=== PATIENT | female | born 1990 | race Caucasian/White ===

== ENCOUNTER → 2016-10-05 | Outpatient (CLI) | payer OTHER | END | disposition home or self-care (01) | LOC: CFH 08:53 | PROVIDERS: ATTEND Surgery | DX: Z01.818 Encounter for other preprocedural examination (principal); E66.01 Morbid (severe) obesity due to excess calories | CPT/HCPCS: 74241 ==

== ENCOUNTER 2016-11-18 05:49 | Inpatient (IN) | payer OTHER ==
[2016-11-16 08:58] LABS: HEMATOCRIT 42.1 % (34.6-47.8); WHITE BLOOD COUNT 7.8 x10^3/uL (3.4-10)
[2016-11-16 09:10] LABS: ASPARTATE AMINO TRANSFERASE 12 U/L (15-37); BLOOD UREA NITROGEN 15 mg/dL (7-18)
[~2016-11-18] VITALS: Ht 167.6 cm; Wt 133.6 kg
[~2016-11-18 05:49] MED LIST: FLUO40CA9 PO; THYR30TA PO
[2016-11-18] MEDS ORDERED: EPINEPHRINE 1 MG/ML, 1ML ONE (06:30)
[2016-11-18] MEDS ORDERED: LACTATED RINGERS 1,000 ML IV SCH (06:30)
[2016-11-18] MEDS ORDERED: BUPIVACAINE/PF 0.5% ONE (06:30)
[2016-11-18 06:32] LABS: HCG UR OBC PASS
[2016-11-18] MEDS ORDERED: MIDAZOLAM 1 MG/ML, 2ML ONE (06:41)
[2016-11-18] MEDS ORDERED: FENTANYL PF 100 MCG/2ML ONE ×4 (06:41→08:48)
[2016-11-18] MEDS ORDERED: KETAMINE 10 MG/ML, 20ML ONE (06:41)
[2016-11-18] MEDS ORDERED: SUCCINYLCHOLINE 20 MG/ML, 10ML ONE (06:56)
[2016-11-18] MEDS ORDERED: CEFAZOLIN 1,000 MG ONE (06:56)
[2016-11-18] MEDS ORDERED: PROPOFOL 10 MG/ML, 20ML ONE (06:56)
[2016-11-18] MEDS ORDERED: DEXAMETHASONE 4 MG/ML, 5ML ONE (06:56)
[2016-11-18] MEDS ORDERED: ONDANSETRON 2MG/ML, 2ML ONE (06:56)
[2016-11-18] MEDS ORDERED: ROCURONIUM 10 MG/ML ONE ×3 (06:56)
[2016-11-18] MEDS ORDERED: EPHEDRINE 50 MG/ML, 1ML ONE (06:56)
[2016-11-18] MEDS ORDERED: MEPERIDINE/PF 25MG/0.5ML IVPush PRN (08:00)
[2016-11-18] MEDS ORDERED: HYDROcodone/APAP 7.5-325MG/15ML UDC PO PRN (08:00)
[2016-11-18] MEDS ORDERED: HYDROmorphone 1 MG/ML, 1ML IV PRN (08:00)
[2016-11-18] MEDS ORDERED: PROMETHAZINE 25 MG/ML, 1ML IV PRN (08:00)
[2016-11-18] MEDS ORDERED: POTASSIUM CHLORIDE 20 MEQ in LACTATED RINGERS 1,000 ML IV SCH (08:10)
[2016-11-18] MEDS: FENTANYL PF 100 MCG/2ML IV PRN ×6 (08:19→09:25)
[2016-11-18] MEDS ORDERED: LORazepam 2 MG/ML, 1ML IV PRN (08:30)
[2016-11-18] MEDS ORDERED: ENALAPRILAT 1.25 MG/ML, 2ML IV PRN (08:30)
[2016-11-18] MEDS ORDERED: DIPHENHYDRAMINE 50 MG/ML, 1ML IV PRN (08:30)
[2016-11-18] MEDS ORDERED: TEMAZEPAM 15 MG CAPSULE PO PRN (08:30)
[2016-11-18] MEDS ORDERED: DIPHENHYDRAMINE 25 MG CAPSULE PO PRN (08:30)
[2016-11-18] MEDS ORDERED: HYDROcodone/APAP 7.5-325MG/15ML UDC ONE (08:41)
[2016-11-18 09:52] VITALS: BP 109/64
[2016-11-18] MEDS ORDERED: [UNRECOGNIZED DRUG - REMARK] MC SCH (10:30)
[2016-11-18] MEDS: FAMOTIDINE 20 MG/2 ML IVPush SCH (10:38)
[2016-11-18] MEDS: ONDANSETRON 2MG/ML, 2ML IVPush PRN ×3 (11:03→20:59)
[2016-11-18 14:23] VITALS: BP 135/77
[2016-11-18] MEDS: POTASSIUM CHLORIDE 20 MEQ in LACTATED RINGERS 1,000 ML IV SCH ×2 (16:30→22:14)
[2016-11-18 19:17] VITALS: BP 99/67
[2016-11-18] MEDS: FLUOXETINE 20 MG CAPSULE PO SCH ×2 (20:55→21:00)
[2016-11-18] MEDS ORDERED: ENOXAPARIN 40 MG/0.4 ML SQ SCH (21:00)
[2016-11-18] MEDS ORDERED: MORPHINE SULFATE 4 MG/ML, 1ML IVPush PRN (22:30)
[2016-11-18] MEDS: HYDROcodone/APAP 7.5-325MG/15ML UDC PO PRN (23:02)
[2016-11-19 01:49] VITALS: BP 110/61
[2016-11-19] MEDS: HYDROcodone/APAP 7.5-325MG/15ML UDC PO PRN ×4 (03:01→15:12)
[2016-11-19] MEDS: POTASSIUM CHLORIDE 20 MEQ in LACTATED RINGERS 1,000 ML IV SCH ×2 (04:58→11:42)
[2016-11-19] MEDS: LEVOTHYROXINE 25 MCG TABLET PO SCH ×2 (05:50→05:53)
[2016-11-19 05:58] LABS: HEMATOCRIT 39.3 % (34.6-47.8); HEMOGLOBIN 12.9 g/dL (11.7-16.4); WHITE BLOOD COUNT 14.6 x10^3/uL (3.4-10)
[2016-11-19] MEDS ORDERED: THYROID 30 MG TABLET PO SCH (06:00)
[2016-11-19 06:09] LABS: ASPARTATE AMINO TRANSFERASE 14 U/L (15-37); BLOOD UREA NITROGEN 11 mg/dL (7-18)
[2016-11-19 07:16] VITALS: BP 102/63
[2016-11-19] MEDS: FAMOTIDINE 20 MG/2 ML IVPush SCH (08:45)
== END 2016-11-19 15:39 | disposition home or self-care (01) | DRG 621 ==
LOC: ORIP 05:49 → EDSTATUS 07:00 → 4NOR 09:49
PROVIDERS: ADMIT Surgery; ATTEND Surgery
PROC: 0FB04ZX Excision of Liver, Percutaneous Endoscopic Approach, Diagnostic (ICD-10-PCS; 2016-11-18)
PROC: 0DB64Z3 Excision of Stomach, Percutaneous Endoscopic Approach, Vertical (ICD-10-PCS; principal; 2016-11-18 07:00)
DX: E66.01 Morbid (severe) obesity due to excess calories (principal); K76.0 Fatty (change of) liver, not elsewhere classified; R12 Heartburn; F32.9 Major depressive disorder, single episode, unspecified; Z68.42 Body mass index [BMI] 45.0-49.9, adult; Z72.4 Inappropriate diet and eating habits
CPT/HCPCS: 36415; 71020; 80053; 81025; 85025; 85610; 88307; 88313; 93005; J0171; J0690; J1100; J1650; J2250; J2270; J2405; J2704; J3010; J3480; J3490; C1760; J0330; J7120; S0028